=== PATIENT | male | born 1990 | race American Indian/Alaskan Native ===

== ENCOUNTER 2019-04-07 13:38 | Emergency (ER) | payer MEDICAID ==
[2019-04-07 13:57] VITALS: BP 136/68
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
== END 2019-04-07 16:16 | disposition home or self-care (01) ==
LOC: ED 13:38
DX: G89.29 Other chronic pain (principal); M54.5 Low back pain; F17.200 Nicotine dependence, unspecified, uncomplicated; Z79.899 Other long term (current) drug therapy